=== PATIENT | female | born 1955 | race Caucasian/White ===

== ENCOUNTER 2017-10-17 14:03 | Outpatient (CLI) | payer OTHER ==
[~2017-10-17] VITALS: Ht 170.2 cm; Wt 58.8 kg
[~2017-10-17 14:03] MED LIST: DOXY100T17 OR; SULF-154 PO; VITA100018 PO; Z.0.NO CURRENT MEDS
[2017-10-17] MEDS ORDERED: ESMOLOL HCL 100 MG/10 ML VIAL IV ONE (14:04)
[2017-10-17] MEDS ORDERED: NEOSTIGMINE 5 MG/5 ML SYRINGE IV PUSH ONE (14:04)
[2017-10-17] MEDS ORDERED: DEXAMETHASONE SOD PHOS 4 MG/ML VIAL IV ONE (14:04)
[2017-10-17] MEDS ORDERED: LIDOCAINE HCL 1% PF 5 ML SYRINGE OTHER ONE (14:04)
[2017-10-17] MEDS ORDERED: ONDANSETRON HCL 4 MG/2 ML VIAL IV PUSH ONE (14:04)
[2017-10-17] MEDS ORDERED: METOPROLOL TARTRATE 5 MG/5 ML VIAL IV ONE (14:04)
[2017-10-17] MEDS ORDERED: ROCURONIUM INJ 50 MG/5 ML SYRINGE IV PUSH ONE (14:04)
[2017-10-17] MEDS ORDERED: PROPOFOL 200 MG/20 ML AMP IV ONE (14:04)
[2017-10-17] MEDS ORDERED: GLYCOPYRROLATE 1 MG/5 ML SYRINGE IV PUSH ONE (14:04)
[2017-10-17] MEDS ORDERED: SODIUM CHLORID 0.9% 500 ML IV PRN (14:45)
[2017-10-17] MEDS ORDERED: POVIDONE IODINE 5% (ANTISEPSIS KIT) 4 APPLICATIONS EACH NARE PRN (14:45)
[2017-10-17] MEDS ORDERED: CHLORHEXIDINE GLUCONATE 2 % 1 PACK (2 CLOTHS) TOPICAL PRN (14:45)
[2017-10-17] MEDS ORDERED: METOPROLOL TARTRATE 25 MG TAB PO PRN (14:45)
[2017-10-17] MEDS ORDERED: LACTATED RINGER'S 1000 ML IV PRN (14:45)
--- NOTE | 2017-10-17 15:10 | EKG ---
Date Performed: 10/17/2017 Time Performed: 14:38:44 PTAGE: 62 years EKG: Baseline artifact present Sinus rhythm NORMAL ECG NO PREVIOUS TRACING DOCTOR: Arnie Juarez Interpretating Date/Time 10/17/2017 15:09:13
[2017-10-17] MEDS ORDERED: AMPICILLIN/SULBAC 3 GM/NS 100 ML IV ONE ×2 (16:30)
[2017-10-17] MEDS ORDERED: CIPROFLOXACIN 400 MG ONE (17:27)
[2017-10-17] MEDS ORDERED: AMPICILLIN-SULBACTAM INJ 3 GM VIAL ONE (17:30)
[2017-10-17] MEDS ORDERED: INDOMETHACIN 50 MG SUPP RECTAL ONE (18:10)
[2017-10-17] MEDS ORDERED: DO NOT ADM ANY ANTICOAGULANT DRUGS PRN (19:03)
--- NOTE | 2017-10-17 19:16 | RADRPT ---
EXAM DATE: 10/17/2017 6:52 PM EDT AGE/SEX: 62 years / Female INDICATIONS: Cholelithiasis and stent placement CLINICAL DATA: This is the patient's initial encounter. Patient reports that signs and symptoms have been present for 1 day and indicates a pain score of Nonresponsive. MEDICAL/SURGICAL HISTORY: . Smoker. Tubal ligation. COMPARISON: No prior exams available for comparison. FINDINGS: An ERCP was performed by the ordering physician. The images demonstrate endoscope in place with mana ulation of the common duct. Contrast material opacifies the common duct which appears dilated. Possib le filling defects are seen. A balloon is inflated on image 4 and on image 5 there is a plastic stent extending from the proximal common duct/common hepatic duct and distally over the region of the duod enum. Innumerable filling defects are visualized within the gallbladder. CONCLUSION: 1. ERCP images obtained during common duct stent placement. 2. There are innumerable stones within the gallbladder. Based on the images provided there were like ly stones within the common duct. Please see the driller helper report for further additional det ails. Electronically signed by: Brian Cody MD 10/17/2017 7:15 PM EDT
[2017-10-17] MEDS ORDERED: *ONDANSETRON 4 MG VIAL PERIprocedural Use ONLY ONE (19:31)
[2017-10-17 19:49] VITALS: BP 157/76; PULSE 60; RESP 12; TEMP 97.8; O2SAT 98
== END 2017-10-17 20:00 | disposition home or self-care (01) ==
LOC: HSDC 14:03 → HEND 20:00
PROVIDERS: ATTEND Internal Medicine Gastroenterology
DX: K80.20 Calculus of gallbladder without cholecystitis without obstruction (principal); Z01.810 Encounter for preprocedural cardiovascular examination
CPT/HCPCS: 00732; 43264; 43273; 43274; 74330; 93005; C1769; C2625; J0295; J1100; J2405; J2710; J3010; J0744

== ENCOUNTER → 2017-10-18 | Day surgery (SDC) | payer OTHER ==
[~2017-10-18] VITALS: Ht 167.6 cm; Wt 59.0 kg
[~2017-10-18] MED LIST changes: +*Lactated Ringer's INJ 1,000 ML ONE; +ACETAMINOPHEN 1000 MG/100 ML 100 ML IV SCH; +BUPIVACAINE/EPINEPHRINE 0.5% PF 30 ML VIAL ONE; +CHLORHEXIDINE GLUCONATE 2 % 1 PACK (2 CLOTHS) TOPICAL PRN; -DOXY100T17 OR; +INSULIN HUMAN REGULAR 1,000 UNITS/10 ML VIAL SQ PRN; +KETOROLAC TROMETHAMINE 30 MG/ML (IVP) VIAL ONE; +LACTATED RINGER'S 1000 ML IV PRN; +METOPROLOL TARTRATE 25 MG TAB PO PRN; +MORPHINE SULFATE 4 MG/ML INJ ONE; +POVIDONE IODINE 5% (ANTISEPSIS KIT) 4 APPLICATIONS EACH NARE PRN; +SODIUM CHLORID 0.9% 500 ML IV PRN; +SODIUM CHLORIDE 0.9% INJ 100 ML ONE; -SULF-154 PO; +VANCOMYCIN 500 MG VIAL ONE; -VITA100018 PO; -Z.0.NO CURRENT MEDS
[2017-10-18 11:54] VITALS: PULSE 97
--- NOTE | 2017-10-18 12:42 | MP ---
cc: Dontae Woods MD DATE OF OPERATION: 10/18/2017 PREOPERATIVE DIAGNOSIS: Chronic cholecystitis and cholelithiasis. POSTOPERATIVE DIAGNOSIS: Chronic cholecystitis and cholelithiasis. PROCEDURE: Laparoscopic cholecystectomy. SURGEON: Dontae Woods MD INDICATIONS: Fadumo Thomas, MS-3. ANESTHESIA: General endotracheal. OPERATIVE FINDINGS: The patient was found to have a chronically diseased appearing gallbladder with a large number of stones within it. She had a very large cystic duct at greater than 1 cm. Her common bile duct was directly visualized and was seen to be intact with a stent in place as per the ERCP the day before this procedure. No other abnormalities were noted. OPERATIVE PROCEDURE: The patient was brought to the operating room and after satisfactory general endotracheal anesthesia was obtained, the abdomen was prepped and draped in the usual sterile fashion. 0.5% Marcaine with epinephrine was used to infiltrate the skin for local anesthesia. A small incision was made above the umbilicus and a 5 mm trocar was inserted into the peritoneal cavity under direct visualization. The abdomen was then distended to 15 mmHg using carbon dioxide after which the camera was reinserted and visceral injury inspected for, with none being identified. It should be noted the patient was also seen to have a small left inguinal hernia. Under direct visualization, a 12 port and a 5 port was placed in the upper midline. The fundus of the gallbladder was identified, grasped, and retracted superiorly over the right lobe of the liver, after which, Adriana's pouch was grasped and retracted inferiorly and laterally, placing tension on the hepatoduodenal ligament. The cystic duct and cystic artery were both dissected free bluntly to obtain the critical view. Once the critical view had been obtained, the cystic artery was divided near its junction with the gallbladder using the Harmonic scalpel. The cystic duct was then dissected down to the common bile duct, which was clearly visualized. Due to the size of the duct, it was elected to use 12 mm clips, which were applied both proximally and distally. The Harmonic scalpel was used to divide the cystic duct between the clips, and then the gallbladder was dissected free from the liver bed using the Harmonic scalpel. The gallbladder was placed within an Endo Catch bag and brought through the upper midline incision where it was withdrawn by necessarily enlarging the fascial opening due to the size of the gallbladder and stones. After removal of the gallbladder, the trocars were reinserted and the liver bed inspected and found to be hemostatic. The cystic duct and cystic artery stumps were both seen to be intact with no leakage of bile or blood. The carbon dioxide was then vented as completely as possible to the atmospheres. The ports were removed and the 12 mm fascial defect closed with interrupted 0 Vicryl sutures. The skin was closed with interrupted 4-0 PDS subcuticular stitches. Steri-Strips were applied. The patient was then awakened and taken from the operating room, in satisfactory condition, having tolerated the procedure without problem. ESTIMATED BLOOD LOSS: Less than 15 mL. The instrument, sponge, and needle counts were reported as being correct x 2 at the end of the procedure. MD CAROLINA Alvarenga/DAMIEN , 12:26 PM , 12:40 PM
[2017-10-18 12:45] VITALS: PULSE 75; TEMP 97.7
[2017-10-18 13:30] VITALS: BP 133/72; PULSE 90; RESP 16; O2SAT 98
== END | disposition home or self-care (01) ==
LOC: PHSDC 07:49
PROVIDERS: ATTEND Surgery
DX: K80.10 Calculus of gallbladder with chronic cholecystitis without obstruction (principal)
CPT/HCPCS: 00790; 47562; 88304; J0131; J1885; J2270; J3010; J3370; J7120